=== PATIENT | male | born 1960 | race American Indian/Alaskan Native ===

== ENCOUNTER 2017-04-26 16:19 | Emergency (ER) | payer BC, OTHER ==
[2017-04-26 16:34] VITALS: BP 147/98
--- NOTE | 2017-04-26 18:15 | Emergency Department Report ---
ED General Adult HPI - General Chief complaint: Skin Rash Stated complaint: RASH ON LFT ARM Time Seen by Provider: 04/26/17 18:09 Source: patient Mode of arrival: Ambulatory Limitations: No Limitations - History of Present Illness Initial comments: PT reports rash to left arm x 1 week. PT states it started with one bump and then the rash started spreading. PT states the first bump started to drain thin yellow fluid. PT states yesterday he started having pain at the site of rash. PT states the pain went from a mild irritation to a sharp pain which he rates 8/ 10. Pt denies relief of pain with Advil. Complaint: rash -: Gradual, week(s) (1 week ) Location: left, upper extremity Severity scale (0 -10): 8 Improves with: none Associated Symptoms: rash. denies: fever/chills, nausea/vomiting Treatments Prior to Arrival: none - Related Data Previous Rx's Medication Instructions Recorded Last Taken Type Ibuprofen [Motrin] 800 mg PO TID PRN #12 tablet 09/09/13 Unknown Rx Acetaminophen/Codeine [Tylenol #3] 1 tab PO Q6H PRN #12 tab 04/26/17 Unknown Rx Acyclovir [Zovirax Tab] 800 mg PO 5XD 7 Days 04/26/17 Unknown Rx Allergies Allergy/AdvReac Type Severity Reaction Status Date / Time No Known Allergies Allergy Verified 04/26/17 16:29 ED Review of Systems ROS: Stated complaint: RASH ON LFT ARM Other details as noted in HPI Comment: All other systems reviewed and negative Constitutional: denies: chills, fever, malaise Gastrointestinal: denies: abdominal pain, nausea, vomiting Skin: rash, change in color ED Past Medical Hx - Past Medical History Previous Medical History?: Yes Hx Hypertension: Yes Additional medical history: chicken pox at 33 years of age - Surgical History Past Surgical History?: Yes Hx Appendectomy: Yes (1975) - Social History Smoking Status: Current Every Day Smoker Substance Use Type: Alcohol - Medications Home Medications: Home Medications Medication Instructions Recorded Confirmed Last Taken Type Ibuprofen [Motrin] 800 mg PO TID PRN #12 tablet 09/09/13 Unknown Rx Acetaminophen/Codeine [Tylenol #3] 1 tab PO Q6H PRN #12 tab 04/26/17 Unknown Rx Acyclovir [Zovirax Tab] 800 mg PO 5XD 7 Days 04/26/17 Unknown Rx ED Physical Exam - General Limitations: No Limitations General appearance: alert, in no apparent distress - Head Head exam: Present: atraumatic, normocephalic - Eye Eye exam: Present: normal appearance, PERRL, EOMI. Absent: conjunctival injection - ENT ENT exam: Present: normal exam, mucous membranes moist, normal external ear exam - Neck Neck exam: Present: normal inspection, full ROM. Absent: tenderness, lymphadenopathy - Respiratory Respiratory exam: Present: normal lung sounds bilaterally. Absent: respiratory distress, chest wall tenderness - Cardiovascular Cardiovascular Exam: Present: regular rate, normal rhythm, normal heart sounds - GI/Abdominal GI/Abdominal exam: Present: soft. Absent: tenderness - Extremities Exam Extremities exam: Present: full ROM. Absent: normal inspection (vesicular rash to LUE), tenderness - Expanded Upper Extremity Exam Left Shoulder Exam: Present: full ROM, erythema (vesicles noted on erythematous base ). Absent: tenderness Elbow exam: Present: normal inspection. Absent: full ROM Forearm Wrist exam: Present: normal inspection, full ROM Hand Wrist exam: Present: normal inspection, full ROM Vascular: Present: radial pulse. Absent: vascular compromise - Back Exam Back exam: Present: normal inspection, full ROM. Absent: tenderness, CVA tenderness (R), CVA tenderness (L), rash noted - Neurological Exam Neurological exam: Present: alert, oriented X3, normal gait - Psychiatric Psychiatric exam: Present: normal affect, normal mood - Skin Skin exam: Present: warm, dry, intact, vesicles ED Course Vital Signs 04/26/17 16:30 Temperature 98.6 F Pulse Rate 70 Respiratory 20 Rate Blood Pressure 147/98 O2 Sat by Pulse 100 Oximetry - Reevaluation(s) Reevaluation #1: 04/26/17 18:17 PT aware of dx and plan of care. PT has no questions at this time. - Pulse Oximetry Interpretation Digit-Finger Initial Pulse Oximetry Readin Actions Taken: none ED Medical Decision Making - Differential Diagnosis abscess, celluliitis, shingles Critical Care Time: No Critical care attestation.: If time is entered above; I have spent that time in minutes in the direct care of this critically ill patient, excluding procedure time. ED Disposition Clinical Impression: Shingles Qualifiers: Herpes zoster complications: without complications Qualified Code(s): B02.9 - Zoster without complications Disposition: DC-01 TO HOME OR SELFCARE Is pt being admited?: No Does the pt Need Aspirin: No Condition: Stable Instructions: Herpes Zoster (ED) Additional Instructions: No driving or alcohol after taking Tylenol #3 for pain Follow up with PCP in 3-5 days, have your bp rechecked at follow up You are contagious. Avoid children under 1, those who have not had chicken pox , the elderly, or anyone with a compromised immune system Prescriptions: Acetaminophen/Codeine [Tylenol #3] 1 tab PO Q6H PRN #12 tab PRN Reason: Pain , Severe (7-10) Acyclovir [Zovirax Tab] 800 mg PO 5XD 7 Days Referrals: PRIMARY CAREMD [Primary Care Provider] - 3-5 Days TRES PRATHER MD [Staff Physician] - 3-5 Days Forms: Work/School Release Form(ED) Time of Disposition: 18:20
[2017-04-26] MEDS ORDERED: NORCO 5/325 PO ONE (18:21)
== END 2017-04-26 18:35 | disposition home or self-care (01) ==
LOC: ED 16:19
DX: B02.9 Zoster without complications (principal); I10 Essential (primary) hypertension; F17.200 Nicotine dependence, unspecified, uncomplicated
CPT/HCPCS: 99282

== ENCOUNTER 2018-01-19 12:21 | Emergency (ER) | payer BC ==
[2018-01-19 12:28] VITALS: BP 129/80
--- NOTE | 2018-01-19 13:24 | Emergency Department Report ---
ED ENT HPI - General Chief complaint: Earache Stated complaint: LEFT EAR PAIN Time Seen by Provider: 01/19/18 13:19 Source: patient Mode of arrival: Ambulatory Limitations: No Limitations - History of Present Illness Initial comments: 57-year-old male past medical history none presents with complaint of 2 weeks of left-sided external earache and discomfort. Patient is awake alert and oriented 3 not in acute distress denies fever or chills. States he has had some slight discharge from tip of left external ear where he removed the piercing/hearing. Patient denies any inner earache. Denies any facial swelling. Patient is fully lucid and nontoxic appearing. Denies any difficulty hearing. MD complaint: ear pain Onset/Timin -: week(s) Location: L ear Severity: moderate Quality: aching Consistency: intermittent Improves with: none Worsens with: none - Related Data Previous Rx's Medication Instructions Recorded Last Taken Type Ibuprofen [Motrin] 800 mg PO TID PRN #12 tablet 09/09/13 Unknown Rx Acetaminophen/Codeine [Tylenol #3] 1 tab PO Q6H PRN #12 tab 04/26/17 Unknown Rx Acyclovir [Zovirax Tab] 800 mg PO 5XD 7 Days tab 04/26/17 Unknown Rx Ciprofloxacin HCl [Ciprofloxacin 500 mg PO Q12H #20 tab 01/19/18 Unknown Rx TAB] Ibuprofen [Motrin] 600 mg PO Q8H PRN #20 tablet 01/19/18 Unknown Rx Sulfamethoxazole/Trimethoprim 1 each PO BID #14 tablet 01/19/18 Unknown Rx [Bactrim DS TAB] Allergies Allergy/AdvReac Type Severity Reaction Status Date / Time No Known Allergies Allergy Verified 04/26/17 16:29 ED Dental HPI - General Chief complaint: Earache Stated complaint: LEFT EAR PAIN Time Seen by Provider: 01/19/18 13:19 Source: patient Mode of arrival: Ambulatory Limitations: No Limitations - Related Data Previous Rx's Medication Instructions Recorded Last Taken Type Ibuprofen [Motrin] 800 mg PO TID PRN #12 tablet 09/09/13 Unknown Rx Acetaminophen/Codeine [Tylenol #3] 1 tab PO Q6H PRN #12 tab 04/26/17 Unknown Rx Acyclovir [Zovirax Tab] 800 mg PO 5XD 7 Days tab 04/26/17 Unknown Rx Ciprofloxacin HCl [Ciprofloxacin 500 mg PO Q12H #20 tab 01/19/18 Unknown Rx TAB] Ibuprofen [Motrin] 600 mg PO Q8H PRN #20 tablet 01/19/18 Unknown Rx Sulfamethoxazole/Trimethoprim 1 each PO BID #14 tablet 01/19/18 Unknown Rx [Bactrim DS TAB] Allergies Allergy/AdvReac Type Severity Reaction Status Date / Time No Known Allergies Allergy Verified 04/26/17 16:29 ED Review of Systems ROS: Stated complaint: LEFT EAR PAIN Other details as noted in HPI Constitutional: denies: chills, fever Eyes: denies: eye pain, eye discharge, vision change ENT: ear pain. denies: throat pain Respiratory: denies: cough, shortness of breath, wheezing Cardiovascular: denies: chest pain, palpitations Endocrine: no symptoms reported Gastrointestinal: denies: abdominal pain, nausea, diarrhea Genitourinary: denies: urgency, dysuria Musculoskeletal: denies: back pain, joint swelling, arthralgia Skin: denies: rash, lesions Neurological: denies: headache, weakness, paresthesias Psychiatric: denies: anxiety, depression Hematological/Lymphatic: denies: easy bleeding, easy bruising ED Past Medical Hx - Past Medical History Previous Medical History?: Yes Hx Hypertension: Yes Additional medical history: chicken pox at 33 years of age - Surgical History Past Surgical History?: Yes Hx Appendectomy: Yes (1975) - Social History Smoking Status: Never Smoker Substance Use Type: Alcohol, Marijuana - Medications Home Medications: Home Medications Medication Instructions Recorded Confirmed Last Taken Type Ibuprofen [Motrin] 800 mg PO TID PRN #12 tablet 09/09/13 Unknown Rx Acetaminophen/Codeine [Tylenol #3] 1 tab PO Q6H PRN #12 tab 04/26/17 Unknown Rx Acyclovir [Zovirax Tab] 800 mg PO 5XD 7 Days tab 04/26/17 Unknown Rx Ciprofloxacin HCl [Ciprofloxacin 500 mg PO Q12H #20 tab 01/19/18 Unknown Rx TAB] Ibuprofen [Motrin] 600 mg PO Q8H PRN #20 tablet 01/19/18 Unknown Rx Sulfamethoxazole/Trimethoprim 1 each PO BID #14 tablet 01/19/18 Unknown Rx [Bactrim DS TAB] ED Physical Exam - General Limitations: No Limitations General appearance: alert, in no apparent distress - Head Head exam: Present: atraumatic, normocephalic - Eye Eye exam: Present: normal appearance, PERRL, EOMI - ENT ENT exam: Present: mucous membranes moist - Expanded ENT Exam Expanded TM/Canal exam: Erythema: Left TM (erythema at the tip of the left auricle. No palpable fluctuance on exam. Small abscess site which is Femi spontaneously drained. There is no mastoid tenderness on exam) 1 - Erythema here - Neck Neck exam: Present: normal inspection - Respiratory Respiratory exam: Present: normal lung sounds bilaterally. Absent: respiratory distress - Cardiovascular Cardiovascular Exam: Present: regular rate, normal rhythm. Absent: systolic murmur, diastolic murmur, rubs, gallop - GI/Abdominal GI/Abdominal exam: Present: soft, normal bowel sounds - Rectal Rectal exam: Present: deferred - Extremities Exam Extremities exam: Present: normal inspection - Back Exam Back exam: Present: normal inspection - Neurological Exam Neurological exam: Present: alert, oriented X3 - Psychiatric Psychiatric exam: Present: normal affect, normal mood - Skin Skin exam: Present: warm, dry, intact, normal color. Absent: rash ED Course Vital Signs 01/19/18 12:26 Temperature 98.6 F Pulse Rate 84 Respiratory 18 Rate Blood Pressure 129/80 O2 Sat by Pulse 98 Oximetry ED Medical Decision Making - Medical Decision Making A/P: Left auricular perichondritis 1-I discussed case with Dr. Gongora before discharge 2- I refered to [facility] for recommendations on perichondritis management [email or web address]?search= [email or web address]&[email or web address]&usage_type=default&anchor=[email or web address]&source= [email or web address]&[email or web address]&display_[email or web address]. Will also add bactrim to cover for gram+ organisms [email or web address] 3-I advised the patient's return to the ED for fevers chills nausea or headache difficulty with hearing. I also advised him to return to the ED if he experiences accumulation of pus beneath the skin of the ear. Patient has a tiny abscess which is artery spontaneously draining. Minimal to no fluctuance on palpation. 4-referred patient to ENT. I emphasized the importance of follow-up to the patient 5- Motrin prn Critical care attestation.: If time is entered above; I have spent that time in minutes in the direct care of this critically ill patient, excluding procedure time. ED Disposition Clinical Impression: Perichondritis of left external ear Disposition: - TO HOME OR SELFCARE Is pt being admited?: No Does the pt Need Aspirin: No Condition: Stable Additional Instructions: [email or web address] Prescriptions: Ciprofloxacin HCl [Ciprofloxacin TAB] 500 mg PO Q12H #20 tab Ibuprofen [Motrin] 600 mg PO Q8H PRN #20 tablet PRN Reason: Pain Sulfamethoxazole/Trimethoprim [Bactrim DS TAB] 1 each PO BID #14 tablet Referrals: [facility]NT [facility], [facility] [Provider Group] - 3-5 Days [facility] [Provider Group] - 3-5 Days SARAVANAN PRINCE MD [Staff Physician] - 3-5 Days Forms: Work/School Release Form(ED) Time of Disposition: 13:35
== END 2018-01-19 13:44 | disposition home or self-care (01) ==
LOC: ED 12:21
DX: H61.002 Unspecified perichondritis of left external ear (principal); I10 Essential (primary) hypertension; F12.10 Cannabis abuse, uncomplicated
CPT/HCPCS: 99282